=== PATIENT | male | born 1985 | race Caucasian/White ===

== ENCOUNTER → 2019-02-05 06:25 | Outpatient (CLI) | payer OTHER, SELFPAY ==
[2017-02-03 12:58] VITALS: BMI 21.4
[2019-02-05 07:14] LABS: Absolute Lymphocyte Count 1.96 X10^3/uL (0.83-4.51); Absolute Neutrophil Count 2.1 X10^3/uL (2.0-7.7); Basophil# 0.08 X10^3/uL; Basophil% 1.5 % (0-1); Eosinophil# 0.63 X10^3/uL; Eosinophils% 11.7 % (0-5); Hemoglobin 14.6 g/dL (13.0-16.5); Lymphocyte # 1.96 X10^3/ul (4.0); Lymphocyte % 36.3 % (19-41); Mean Corpuscular Hgb 31.9 pg (27.0-32.0); Mean Corpuscular Volume 94.1 fL (80-94); Mean Platelet Vol. 10.1 fl (6.2-12.0); Monocyte# 0.63 X10^3/uL; Monocyte% 11.7 % (0-10); NRBC Flagged by Analyzer 0 % (0-5); Neutrophil # 2.09 X10^3/uL (2.7-7.7); Neutrophil % 38.6 % (47-70); Platelet Count 268 K/mm3 (150-450); RBC Distribution Width SD 41.8 fl (35.1-43.9); Red Blood Count 4.57 M/mm3 (4.6-6.2); White Blood Count 5.4 K/mm3 (4.4-11.0)
[2019-02-05 07:59] LABS: ALB/GLOB Ratio 1.3 RATIO (0.9-2.4); AST(SGOT) 14 U/L (15-37); Alanine Aminotransfer ALT/SGPT 25 U/L (16-61); Alkaline Phosphatase 68 U/L (45-117); Anion Gap 6 (5-15); BUN 13 mg/dL (7-18); BUN/Creat Ratio 14.3 RATIO (10-20); Calcium,Total 8.4 mg/dL (8.5-10.1); Chloride 110 mmol/L (98-107); Cholesterol 151 mg/dL (200); Creatinine, Serum 0.91 mg/dL (0.70-1.30); EST Glomerular Filtration Rate 103 mL/min (>60); Est Glom Filt Rate - Afr Amer 124 mL/min (>60); Globulin 3.1 g/dL (2.2-4.2); Glucose 96 mg/dL (74-106); High Density Lipoprotein 72 mg/dL; Potassium 4.1 mmol/L (3.5-5.1); Protein, Total 7.1 g/dL (6.4-8.2); Sodium Level 143 mmol/L (136-145); Thyroid Stim Hormone (TSH) 1.73 uIU/mL (0.358-3.74); Triglycerides 52 mg/dL; Very Low Density Lipoprotein 10 mg/dL (5-40)
== END ==
PROVIDERS: Family Provider Family Medicine; PCP Family Medicine; Referring Provider Family Medicine; Visit Provider Family Medicine
DX: R42 Dizziness and giddiness (principal); R00.2 Palpitations; Z13.220 Encounter for screening for lipoid disorders
CPT/HCPCS: 36415; 80053; 80061; 84443; 85025

== ENCOUNTER → 2020-01-24 | Outpatient (CLI) | payer OTHER, SELFPAY ==
[2017-02-03 12:58] VITALS: BMI 21.4
== END | disposition home or self-care (01) ==
LOC: MFPLAB 16:02 → LABSPEC 16:02
PROVIDERS: PCP Family Medicine; Referring Provider Family Medicine; Visit Provider Family Medicine
DX: Z20.828 Contact with and (suspected) exposure to other viral communicable diseases (principal)
CPT/HCPCS: 87635; U0003

== ENCOUNTER 2020-11-13 18:49 | Emergency (ER) | payer OTHER, SELFPAY ==
[2020-11-13 18:50] VITALS: BP 123/89; PULSE 98; RESP 16; TEMP 36.2; O2SAT 98; BMI 24.9
--- NOTE | 2020-11-13 20:53 | EDS_ITS ---
HPI History of Present Illness Chief Complaint: Chest Other Informant: patient Narrative Narrative: Patient is a 35-year-old previously healthy male who presents to the emergency department for left upper quadrant/lower chest pain. He states that this initially started on Monday. It has been fluctuating. He feels like it starts to cramp every now and then. At its worst it gets up to an 8 out of 10. He currently rates as a 6 out of 10. He does not taken anything for it. He states that he golfed on Monday and he typically gets some left-sided pain after that. On Monday he did a lot of heavy lifting and thinks he might have tweaked something then. The pain did not start until Monday. Certain movements, lying in certain positions, taking deep breaths, pushing on the area seems to make it worse. He has never had this before in the past. He denies any shortness of breath. No chest pain. No radiation of the pain. He denies any nausea/vomiting or diarrhea. No urinary symptoms. No leg swelling or calf pain. [facility] Medical History (Updated 11/13/20 @ 22:[address] Ross Muñoz DO) History of sebaceous cyst Home Medications escitalopram oxalate 10 mg tablet 10 mg PO DAILY 07/09/20 [History Last Taken Unknown] naproxen [Naprosyn] 500 mg PO BID PRN #20 tab 11/13/20 [Rx Last Taken Unknown] Allergy/AdvReac Type Severity Reaction Status Date / Time ceftriaxone Allergy Mild hives Verified 11/13/20 18:50 PCN Allergy Hives Uncoded 11/13/20 18:50 Family History (Updated 11/13/20 @ 19:42 by Ilana Agustin) Mother Diabetes Grandfather Myocardial infarction Father Hypertension Surgical History History of elbow surgery History of laser refractive surgery Social History Smoking Status: Never smoker Smokeless tobacco user: chewing tobacco ROS ROS ED Constitutional Constitutional ED: Denies chills or fever(s) Eyes Eyes: Denies change in vision ENT ENT ED: Denies epistaxis or rhinorrhea Cardiovascular Cardiovascular: Reports chest pain; Denies palpitations Respiratory/Chest Respiratory/Chest: Denies cough, dyspnea or dyspnea on exertion Gastrointestinal Gastrointestinal: Reports abdominal pain; Denies diarrhea, nausea or vomiting Genitourinary Genitourinary ED: Denies dysuria, hematuria or urinary frequency Musculoskeletal Musculoskeletal: Denies back pain or neck pain Integumentary Denies rash Neurologic Neurologic: Denies dizziness, headache(s) or weakness EXAM Physical Exam Const Vital Signs: 11/13/20 18:50 11/13/20 19:41 11/13/20 22:12 Temperature 97.1 F L Temperature Source Temporal Pulse Rate 98 Respiratory Rate 16 18 Respiratory Effort Normal Respiratory Pattern Normal Blood Pressure 123/89 H Blood Pressure Mean 100 Pulse Ox 98 Oxygen Delivery Method Room Air Positive well nourished and well developed General Appearance ED: well developed and NAD HEENT Reports normocephalic, head/scalp atraumatic and moist mucous membranes Eyes PERRL and EOMs intact bilaterally Neck supple General: Negative for tenderness Chest Wall inspection of chest normal Resp normal respiratory effort and clear to auscultation bilaterally Auscultation: Negative for rales, rhonchi or wheezes Cardio regular rate, regular rhythm and no murmurs GI normal to inspection, nondistended, normoactive bowel sounds GI Narrative: Tenderness along the left lateral flank musculature. This is just inferior to the lower ribs on the left side. No rebound or guarding. No abdominal pain elsewhere. Palpation: soft; Negative for guarding or rebound tenderness present Back/Spine no CVA tenderness Extremity normal to inspection General Extremety ED: Negative for edema or tenderness General Extremity: Negative for edema Neuro no sensory deficits noted Sensorium / Orientation: alert Motor Exam: strength 5/5 throughout Psych mental status grossly normal Skin no rashes or lesions noted MDM MDM MDM Narrative Medical decision making narrative: Patient presents to the emergency department for left side pain. This was after doing a lot of heavy lifting on Monday. On arrival to the emergency department satting well on room air. Is not tachycardic. He is in no acute distress. Abdominal/flank pain is reproducible on the left. I do not think that this is cardiopulmonary in nature. Low concern for acute intra-abdominal pathology. It is worse with movements and palpation. I believe that this likely musculoskeletal. Will check an x-ray of the chest and give a dose of Toradol for symptomatic treatment. Patient's chest x-ray did not reveal acute cardiopulmonary abnormality. No free air appreciated. He is feeling better for the dose of Toradol. We will write a prescription for Naprosyn for home treatment. Develops any worsening symptoms he needs to come back to the emergency department for reevaluation. He otherwise is to follow-up with his PCP. He is discharged home in stable condition. All questions were answered. Radiography Diagnostic Testing: Radiology Impression Chest X-Ray 11/13/20 21:00 IMPRESSION: No radiographic evidence of acute cardiopulmonary disease. at 2135 Reported and signed by: Ankit Shafer MD Electronically Signed: Ankit Shafer MD at 21:34 EDT Tel , Service support , Discharge Plan Triage Chief Complaint: Chest Other ED Provider: Ross Muñoz Dx/Rx/DC Orders Clinical Impression: Abdominal wall pain in left flank Instructions: Abdominal Pain Prescriptions: New naproxen [Naprosyn] 500 mg tablet 500 mg PO BID PRN (Reason: pain) Qty: 20 RF: 0 No Action escitalopram oxalate 10 mg tablet 10 mg PO DAILY RF: 0 Primary Care Provider: Rafi Mathur Referrals: Rafi Mathur MD [Primary Care Provider] - 3-5 Days if not improving Disposition Disposition: Home, Self Care Discharge Date/Time: 11/13/20 22:12
--- NOTE | 2020-11-13 21:00 | RAD_ITS ---
HISTORY: lower left pain under ribs EXAMINATION/TECHNIQUE: XR Chest 2 Views: 2 views COMPARISON: 02/03/17 FINDINGS: LINES/DEVICES: None. LUNGS: No pulmonary consolidation, mass, or edema. No pleural effusion or pneumothorax. MEDIASTINUM AND CARDIOVASCULAR STRUCTURES: Cardiac silhouette not enlarged. Central airways and mediastinal contour are unremarkable. BONES AND SOFT TISSUES: No acute bony abnormalities. RAD/Chest PA and Lateral IMPRESSION: No radiographic evidence of acute cardiopulmonary disease. at 2135 Reported and signed by: Ankit Shafer MD Electronically Signed: Ankit Shafer MD at 21:34 EDT Tel , Service support ,
[2020-11-13] MEDS: Ketorolac 30 MG/ML Syringe IM (21:12)
[2020-11-13 22:12] VITALS: RESP 18
== END 2020-11-13 22:12 | disposition home or self-care (01) ==
PROVIDERS: Emergency Provider Emergency Medicine; PCP Family Medicine
DX: R10.12 Left upper quadrant pain (principal); R07.89 Other chest pain; F17.220 Nicotine dependence, chewing tobacco, uncomplicated; Z79.899 Other long term (current) drug therapy
CPT/HCPCS: 71046; 96372; 99282

== ENCOUNTER → 2022-03-25 | Outpatient (CLI) | payer OTHER, SELFPAY | END | disposition home or self-care (01) | PROVIDERS: PCP Family Medicine; Referring Provider Obstetrics & Gynecology; Visit Provider Obstetrics & Gynecology | DX: Z31.440 Encounter of male for testing for genetic disease carrier status for procreative management (principal) | CPT/HCPCS: 36415 ==